=== PATIENT | female | born 1985 | race Caucasian/White ===

== ENCOUNTER → 2021-02-02 | Outpatient (CLI) | payer BC ==
[2021-02-02 13:59] VITALS: BP 104/72; PULSE 88; RESP 18; TEMP 97.4; BMI 41.8
--- NOTE | 2021-02-02 15:22 | P.HPBAR ---
Bariatric H&P - History & Physicial H&P Date: 02/02/21 History & Physicial: Visit/CC: initial visit Patient initial contact: Initial weight: Initial weight in pounds: Height: 5 ft 7 in Initial BMI: Last weight: Current weight: 120.973 kg Current weight in pounds: 266.70 Current BMI: 41.8 [place] body weight (based on NIH guidelines): 61.235 kg Excess body weight loss: The patient is a 36 year-old F who presents for Bariatric Assessment. Patient presents today for presurgical consultation. She's had lifetime problems obesity. Her BMI is 42. Past Medical History Past Medical History: Thyroid Disorder Additional Past Medical History / Comment(s): Hypothyroidism with , resolved after . History of Any Multi-Drug Resistant Organisms: None Reported Past Surgical History: Cholecystectomy, Hysterectomy, Orthopedic Surgery, Tonsillectomy Additional Past Surgical History / Comment(s): pelvic floor repair - mesh place d. ACL X3 right knee. Past Anesthesia/Blood Transfusion Reactions: No Reported Reaction Past Psychological History: No Psychological Hx Reported Smoking Status: Never smoker Past Alcohol Use History: Rare Past Drug Use History: None Reported Surgical - Exam Vital Signs Temp Pulse Resp BP 97.4 F L 88 18 104/72 02/02/21 13:49 02/02/21 13:49 02/02/21 13:49 02/02/21 13:49 - General well developed, well nourished, no distress - Eyes PERRL - ENT normal pinna - Neck no masses - Respiratory normal expansion - Cardiovascular Rhythm: regular - Abdomen Abdomen: soft, non tender Bariatric Assessment & Plan Plan: Morbid obesity. BMI is 42. Patient will be scheduled for EGD. Bariatric Checklist Checklist: Plan: Checklist: EGD: 1. Hiatal hernia: 2. H. Pylori: HgbA1c: Vitamin D: Smoking: Primary care physician referral: [facility] (Dr. Erick Díaz) Psychiatry clearance: Cardiology clearance: Sleep study: Diet journal: VTE risk score: VTE risk level: Rehab needs at discharge:
== END ==
LOC: BARWHC3 13:41
PROVIDERS: ATTEND Surgery
DX: E66.01 Morbid (severe) obesity due to excess calories (principal); Z68.41 Body mass index [BMI] 40.0-44.9, adult; Z91.040 Latex allergy status
CPT/HCPCS: 99203

== ENCOUNTER 2021-05-21 09:03 | Day surgery (SDC) | payer BC ==
[2021-05-20 08:30] VITALS: BMI 41.0
[~2021-05-21 09:03] MED LIST: LACTATED RINGERS 1,000 ML IV SCH; LIDOCAINE 1% (10MG/ML) FOR IV START INTRADERMA PRN; MIDAZOLAM 2 MG/2 ML VIAL IV PRN
[2021-05-21 09:25] VITALS: RESP 16; TEMP 97.8
[2021-05-21] MEDS ORDERED: LIDOCAINE 1% INJ 10MG/ML (20 ML MDV) ONE (10:54)
[2021-05-21] MEDS ORDERED: PROPOFOL 10 MG/ML 20 ML VIAL IV ONE (10:54)
--- NOTE | 2021-05-21 10:57 | P.GSHP ---
History of Present Illness H&P Date: 05/21/21 Chief Complaint: GERD, Morbid obesity [age]-year-old female who is undergoing workup for sleeve gastrectomy. Patient IVs. Her BMI is 41. She is also had some mild GERD. Past Medical History Past Medical History: No Reported History Additional Past Medical History / Comment(s): Hypothyroidism with , resolved after . History of Any Multi-Drug Resistant Organisms: None Reported Past Surgical History: Cholecystectomy, Hysterectomy, Orthopedic Surgery, Tonsillectomy Additional Past Surgical History / Comment(s): pelvic floor repair - mesh placed. ACL X3 right knee. Past Anesthesia/Blood Transfusion Reactions: No Reported Reaction Smoking Status: Never smoker - Past Family History Mother Family Medical History: Cancer Additional Family Medical History / Comment(s): STOMACH,SKIN, BREAST Medications and Allergies Home Medications Medication Instructions Recorded Confirmed Type No Known Home Medications 02/02/21 05/21/21 History Allergies Allergy/AdvReac Type Severity Reaction Status Date / Time Latex, Natural Rubber Allergy Rash/Hives Verified 05/21/21 09:19 Surgical - Exam Vital Signs Temp Pulse Resp BP Pulse Ox 97.8 F 69 16 114/81 97 05/21/21 09:21 05/21/21 09:21 05/21/21 09:21 05/21/21 09:21 05/21/21 09:21 - General well developed, well nourished, no distress - Eyes PERRL - ENT normal pinna - Neck no masses - Respiratory normal expansion - Cardiovascular Rhythm: regular - Abdomen Abdomen: soft, non tender Assessment and Plan Assessment: GERD Morbid obesity We'll perform EGD
--- NOTE | 2021-05-21 11:06 | P.OP ---
Date of Procedure: 05/21/21 Preoperative Diagnosis: GERD. Morbid obesity Postoperative Diagnosis: Antral gastritis Procedure(s) Performed: EGD Anesthesia: MAC Surgeon: Harvey Mckinney Pathology: other (Antral) Condition: stable Disposition: PACU Description of Procedure: The patient's placed on the endoscopy table in the lateral position she received IV sedation. The gastroscope placed oropharynx passed in the esophagus into the stomach. Scope was then placed through the pylorus. First and second portion of duodenum appeared normal. Scope was then brought back the antrum was mildly inflamed. A biopsies performed. Scope was unretroflexed and remainder of the stomach appeared normal. The GE junction was at 40 cm. The distal esophagus appeared normal. The proximal esophagus appeared normal. Scope was withdrawn for patient.
[2021-05-21 11:35] VITALS: BP 108/74; PULSE 66
== END 2021-05-21 12:38 | disposition home or self-care (01) ==
LOC: ORWHC2ENDO 09:03
PROVIDERS: ATTEND Surgery
DX: K21.9 Gastro-esophageal reflux disease without esophagitis (principal); K29.50 Unspecified chronic gastritis without bleeding; E66.01 Morbid (severe) obesity due to excess calories; Z91.040 Latex allergy status
CPT/HCPCS: 88305; 43239; J2001; J2704

== ENCOUNTER → 2021-06-01 | Outpatient (CLI) | payer BC ==
[2021-06-01 11:57] VITALS: BMI 42.2
[2021-06-01 14:30] VITALS: BP 117/78; PULSE 64; TEMP 98.2
--- NOTE | 2021-06-16 10:59 | P.HPBAR ---
Bariatric H&P - History & Physicial H&P Date: 06/01/21 History & Physicial: Visit/CC: presurgical visit Patient initial contact: Initial weight: Initial weight in pounds: Height: 5 ft 7 in Initial BMI: Last weight: Current weight: 122.2 kg Current weight in pounds: 269.40 Current BMI: 42.2 [place] body weight (based on NIH guidelines): 61.235 kg Excess body weight loss: The patient is a 36 year-old F who presents for Bariatric Assessment. Patient presents today for presurgical consultation.. She is morbidly obese. Her BMI is 42. She is interested sleeve gastrectomy. Past Medical History Past Medical History: No Reported History, Sleep Apnea/CPAP/BIPAP Additional Past Medical History / Comment(s): Hypothyroidism with , resolved after . History of Any Multi-Drug Resistant Organisms: None Reported Past Surgical History: Cholecystectomy, Hysterectomy, Orthopedic Surgery, Tonsillectomy Additional Past Surgical History / Comment(s): pelvic floor repair - mesh placed. ACL X3 right knee. Past Anesthesia/Blood Transfusion Reactions: No Reported Reaction Past Psychological History: No Psychological Hx Reported Smoking Status: Never smoker Past Alcohol Use History: Rare Past Drug Use History: None Reported - Past Family History Mother Family Medical History: Cancer Additional Family Medical History / Comment(s): STOMACH,SKIN, BREAST Surgical - Exam Vital Signs Temp Pulse BP 98.2 F 64 117/78 06/01/21 14:29 06/01/21 14:29 06/01/21 14:29 - General well developed, well nourished, no distress - Eyes PERRL - ENT normal pinna - Neck no masses - Respiratory normal expansion - Cardiovascular Rhythm: regular - Abdomen Abdomen: soft, non tender Bariatric Assessment & Plan Plan: Morbid obesity, BMI 42. Patient will be scheduled for EGD. She's has an excellent Understanding sleeve yesterday. Bariatric Checklist Checklist: Plan: Checklist: EGD: 1. Hiatal hernia: 2. H. Pylori: HgbA1c: Vitamin D: Smoking: Primary care physician referral: [facility] (Dr. Erick Díaz) Psychiatry clearance: Cardiology clearance: Sleep study: Diet journal: VTE risk score: VTE risk level: Rehab needs at discharge:
== END ==
LOC: BARWHC3 08:30
PROVIDERS: ATTEND Surgery
DX: E66.01 Morbid (severe) obesity due to excess calories (principal); Z01.818 Encounter for other preprocedural examination; Z71.3 Dietary counseling and surveillance; Z68.41 Body mass index [BMI] 40.0-44.9, adult; Z91.040 Latex allergy status
CPT/HCPCS: 97804; 99211